=== PATIENT | female | born 1990 | race Caucasian/White ===

== ENCOUNTER → 2018-05-30 13:13 | Outpatient (CLI) | payer MEDICAID, SELFPAY ==
[2018-05-30 14:26] LABS: Alanine Aminotransferase 23 U/L (12-78); Albumin Level 4.5 gm/dL (3.4-5.0); Albumin/Globulin Ratio 1.3 (1.1-1.8); Alkaline Phosphatase 86 U/L (46-116); Anion Gap 15.2 mEq/L (5-15); Aspartate Amino Transferase 21 U/L (15-37); Basophils % 0.5 % (0.1-2.0); Bilirubin,Total 0.8 mg/dL (0.2-1.0); Blood Urea Nitrogen 11 mg/dL (7-18); Calcium 9.6 mg/dL (8.5-10.1); Carbon Dioxide 28 mmol/L (21.0-32.0); Chloride 102 mmol/L (98-107); Chol/HDL Ratio 1.9 (1-3.5); Cholesterol 160 mg/dL (140-200); Creatinine,Serum 0.49 mg/dL (0.55-1.02); Eosinophils # 0.1 K/mm3 (0.0-0.4); Eosinophils % 0.9 % (0.1-12.0); Estimated Glomerular Filt Rate 149 ml/min (>60); GFR (African American) 181 ML/MIN (>60); Globulin 3.6 gm/dl (1.3-3.2); Glucose 79 mg/dL (74-106); HDL Cholesterol 86 mg/dL (29-89); Hematocrit 46.5 % (37.0-47.0); Hemoglobin 15.1 g/dL (12.2-16.2); LDL Cholesterol 68 mg/dL (0-130); Lymphocytes # 0.9 K/mm3 (0.7-4.5); Lymphocytes % 14.5 % (10-50); Mean Corpuscular HGB Conc 32.4 g/dL (31.8-35.4); Mean Corpuscular Hemoglobin 29.2 pg (27.0-31.2); Mean Corpuscular Volume 90.1 fl (81-99); Mean Platelet Volume 8.5 fl (7.4-10.4); Monocytes # 0.4 K/mm3 (0.1-1.0); Monocytes % 5.5 % (1.7-9.3); Neutrophils # 5.1 K/mm3 (1.8-7.8); Neutrophils % 78.6 % (37.0-80.0); Platelet Count 257 K/mm3 (142-424); Potassium 4.2 mmoL/L (3.5-5.1); Red Blood Count 5.16 M/mm3 (4.20-5.40); Red Cell Distribution Width 12.9 % (11.5-17.5); Sodium 141 mmol/L (136-145); T4 (Thyroxine) 8.6 ug/dl (4.7-13.3); Thyroid Stimulating Hormone 1.11 uIU/ml (0.358-3.740); Total Protein,Serum 8.1 gm/dL (6.4-8.2); Triglycerides 32 mg/dL (30-200); VLDL Cholesterol 6 mg/dL (0-40); White Blood Count 6.5 K/mm3 (4.8-10.8)
[2018-05-31 15:53] LABS: Vitamin D 25 Hydroxy 50.7 ng/mL (30.0-100.0)
== END ==
PROVIDERS: PCP Nurse Practitioner Family; Visit Provider Nurse Practitioner Family
DX: M79.89 Other specified soft tissue disorders (principal)
CPT/HCPCS: 80053; 80061; 82652; 84436; 84443; 85025

== ENCOUNTER 2021-03-20 10:11 | Emergency (ER) | payer OTHER, SELFPAY ==
[2021-03-20 11:21] VITALS: BP 136/90; PULSE 70; RESP 18; TEMP 36.6; O2SAT 99; BMI 17.1
[2021-03-20 11:26] VITALS: BP 136/90; PULSE 70; RESP 18; TEMP 36.8
--- NOTE | 2021-03-20 11:40 | HMH.EDUTC ---
[facility] Disposition Clinical Impression: Sinusitis Qualifiers: Sinusitis location: maxillary Chronicity: acute Recurrence: non-recurrent Qualified Code(s): J01.00 - Acute maxillary sinusitis, unspecified Disposition: Home, Self-Care Condition on Discharge: Good Instructions: DI for Sinusitis Additional Instructions: You have been tested for COVID19. Please isolate as if you are positive until test results received. Prescriptions: Amoxicillin [Amoxicillin 875MG Tab] 875 mg PO Q12H #20 tab Transmission Status: Pending to [facility] predniSONE [Prednisone 20mg Tab] 20 mg PO BID 5 Days #10 tab Transmission Status: Pending to [facility] Pseudoephedrine HCl [Sudafed 12 Hour 120mg Tab] 1 tab PO BID PRN 10 Days #20 tab PRN Reason: Congestion Transmission Status: Pending to [facility] Referrals: Mamie Faustin PA [Primary Care Provider] - Time of Disposition: 11:53 Medical Decision Making - Geovanny Inquiry Pt receiving controlled substance: No Vital Signs: 03/20/21 11:21 03/20/21 11:26 Temperature 97.9 F 98.2 F Temperature Source Oral Pulse Rate 70 Pulse Rate [Left] 70 Respiratory Rate 18 18 Blood Pressure 136/90 Blood Pressure [Right Arm] 136/90 Blood Pressure Mean [Right Arm] 105 02 Sat by Pulse Oximetry 99 Orders (Tests/Meds): ORDERS Category Date Time Status Covid-19 Nasal PCR ([facility]) Routine Lab 03/20/21 11:25 Received [facility] HPI - General Stated complaint: congestion, sinus Time Seen by Provider: 03/20/21 11:42 Mode of Arrival: Ambulatory Source of Information: Patient Limitations: No Limitations Description of Symptoms (Recalled from Triage Doc. by RN): pt c/o congestion, sinus pressure and SHAVER HEENT Symptoms (Recalled from RN notes): Yes (sinus pressure/congestion and SHAVER) Resp Symptoms (Recalled from RN notes): No Skin Symptoms (Recalled from RN notes): No MS Symptoms (Recalled from RN notes): No Functional Status (Recalled from RN notes): na - History of Present Illness Provider Complaint: Patient complains of headache, ears popping, sinus pain and pressure, pain behind eyes and sore throat X 3-4 days. No fever. Can't breathe thru nose because it is so congestion. Smell and taste come and go. No known exposure to COVID19 but kids are in school. No cough. No vomiting or diarrhea. Onset (ago): day(s) (4) Location: head, eyes Relieving factors: none Exacerbating factors: none Associated symptoms: denies other symptoms Treatments prior to arrival: none - Related Data Home Medications Medication Instructions Recorded Confirmed levonorgestrel 20 mcg/24 hours (6 1 insert INTRAUTERI ONCE 11/28/17 01/21/20 yrs) 52 mg intrauterine device Previous Rx's Medication Instructions Recorded Amoxicillin [Amoxicillin 875MG 875 mg PO Q12H #20 tab 03/20/21 Tab] Pseudoephedrine HCl [Sudafed 12 1 tab PO BID PRN 10 Days #20 tab 03/20/21 Hour 120mg Tab] predniSONE [Prednisone 20mg 20 mg PO BID 5 Days #10 tab 03/20/21 Tab] Allergies Allergy/AdvReac Type Severity Reaction Status Date / Time No Known Allergies Allergy Verified 01/21/20 14:01 - Worker's Comp Is this a Worker's Comp case?: No [facility] History - Hepatitis A Screen Drug use history?: No High risk sexual behaviors?: No History of sexually transmitted infection?: No Currently employed?: No Childcare worker?: No Do you have indoor plumbing?: Yes Do you have electricity?: Yes Attestation statement:: This patient has been screened for Hepatitis A risk factors. I have reviewed the patient's past medical history: Yes Medical History: Reports:: Anxiety, Depression Other Surgeries: Yes: No Previous Surgery, Other Amputation: No Fractures: Yes Comment: wisdom teeth - Social History Smoking Status: Never smoker Alcohol Intake: never Substance Use Type: denies use Occupational Status: employed Housing: house - Psychiatric History Pschychiatric History
== END 2021-03-20 12:13 | disposition home or self-care (01) ==
PROVIDERS: Emergency Provider Physician Assistant; PCP Physician Assistant
DX: J01.00 Acute maxillary sinusitis, unspecified (principal); F41.8 Other specified anxiety disorders; Z20.822 Contact with and (suspected) exposure to COVID-19
CPT/HCPCS: 99202; G0463; U0003

== ENCOUNTER → 2021-06-23 08:54 | Outpatient (CLI) | payer OTHER, SELFPAY | PROVIDERS: PCP Physician Assistant; Visit Provider Nurse Practitioner | DX: Z20.822 Contact with and (suspected) exposure to COVID-19 (principal) | CPT/HCPCS: C9803; U0003; U0005 ==

== ENCOUNTER → 2021-08-21 12:30 | Outpatient (CLI) | payer OTHER, SELFPAY | PROVIDERS: Visit Provider Nurse Practitioner | DX: U07.1 COVID-19 (principal) | CPT/HCPCS: C9803; U0003; U0005 ==

== ENCOUNTER → 2022-02-23 06:10 | Outpatient (CLI) | payer OTHER, SELFPAY ==
[2022-02-22 17:59] LABS: Basophils # 0.1 K/mm3 (0-0.2); Basophils % 1.2 % (0.1-2.0); Eosinophils % 0.5 % (0.1-12.0); Hematocrit 46.4 % (37.0-47.0); Hemoglobin 15.3 g/dL (12.2-16.2); Lymphocytes # 1.4 K/mm3 (0.7-4.5); Lymphocytes % 19.1 % (10-50); Mean Corpuscular Volume 90.9 fl (81-99); Mean Platelet Volume 9.5 fl (7.4-10.4); Monocytes # 0.4 K/mm3 (0.1-1.0); Monocytes % 5.1 % (1.7-9.3); Neutrophils # 5.4 K/mm3 (1.8-7.8); Platelet Count 296 K/mm3 (142-424); Red Blood Count 5.11 M/mm3 (4.20-5.40); Red Cell Distribution Width 13.1 % (11.5-17.5); White Blood Count 7.2 K/mm3 (4.8-10.8)
[2022-02-22 18:27] LABS: Alanine Aminotransferase 17 U/L (12-78); Albumin Level 4.8 g/dl (3.5-5.0); Albumin/Globulin Ratio 1.7 (1.1-1.8); Alkaline Phosphatase 88 U/L (38-126); Anion Gap 14.2 mEq/L (5-15); Aspartate Amino Transferase 30 U/L (14-36); Bilirubin,Total 1.1 mg/dl (0.2-1.3); Blood Urea Nitrogen 9 mg/dl (7-17); Calcium 10.3 mg/dl (8.4-10.2); Carbon Dioxide 26 mmol/L (22.0-30.0); Chloride 103 mmol/L (98-107); Chol/HDL Ratio 2.2 (1-3.5); Cholesterol 179 mg/dl (140-200); Estimated Glomerular Filt Rate 115 ml/min (>60); GFR (African American) 139 ML/MIN (>60); Globulin 2.9 g/dL (1.3-3.2); Glucose 112 mg/dl (74-100); HDL Cholesterol 81 mg/dl (40-60); Potassium 4.2 mmoL/L (3.5-5.1); Sodium 139 mmol/L (136-145); Total Protein,Serum 7.7 g/dl (6.3-8.2); Triglycerides 57 mg/dl (30-150); VLDL Cholesterol 11 mg/dL (0-40)
[2022-02-22 18:44] LABS: 25-OH Vitamin D, Total 49.5 ng/mL (30-100)
[2022-02-22 19:37] LABS: Direct LDL Cholesterol 72.33 mg/dL (100-129)
[2022-02-22 20:09] LABS: Iron 124 ug/dL (37-170)
[2022-02-22 20:16] LABS: Vitamin B12 444 pg/mL (239-931)
[2022-02-22 20:18] LABS: Total Iron Binding Capacity 264 ug/dL (265-497)
[2022-02-23 08:29] LABS: Hemoglobin A1C 4.9 % (4.0-6.0)
[2022-02-23 08:32] LABS: Intact Parathyroid Hormone 34.8 pg/mL (7.5-53.5)
== END ==
PROVIDERS: PCP Physician Assistant; Visit Provider Physician Assistant
DX: R63.4 Abnormal weight loss (principal); R73.09 Other abnormal glucose; E83.52 Hypercalcemia; Z68.1 Body mass index [BMI] 19.9 or less, adult
CPT/HCPCS: 80053; 80061; 82306; 82607; 83036; 83540; 83550; 83970; 84443; 85025

== ENCOUNTER → 2022-02-23 14:52 | Outpatient (CLI) | payer OTHER, SELFPAY ==
[2022-02-23 16:35] LABS: Triiodothryronine (T3) Uptake 33 % (23.5-40.5)
[2022-02-23 16:36] LABS: Free Thyroxine Index 3.1 ug/dL (5.93-13.13); T4 (Thyroxine) 9.4 ug/dl (5.53-11.0)
[2022-02-23 16:50] LABS: Thyroid Stimulating Hormone 0.49 uIU/mL (0.465-4.68)
[2022-02-25 08:14] LABS: Thyroid Peroxidase Antibodies 10 IU/mL (0-34)
[2022-02-27 15:09] LABS: Thyroid Stimulating Immunoglob <0.10 IU/L (0.00-0.55)
== END ==
PROVIDERS: PCP Physician Assistant; Visit Provider Physician Assistant
DX: R79.89 Other specified abnormal findings of blood chemistry (principal)
CPT/HCPCS: 36415; 84436; 84443; 84445; 84479; 86376

== ENCOUNTER → 2022-03-14 12:53 | Outpatient (CLI) | payer OTHER, SELFPAY ==
--- NOTE | 2022-03-14 12:58 | US_ITS ---
FINAL REPORT CLINICAL HISTORY: Decreased TSH FINDINGS: THYROID ULTRASOUND Sonographic images of the thyroid was obtained. The right lobe of the thyroid measures 4.4 x 2.0 x 1.5 cm. The left lobe of the thyroid measures 4.2 x 1.4 x 0.8 cm. The isthmus measures 3 mm. There are multiple tiny anechoic, hypoechoic foci in the bilateral lobes of the thyroid consistent with TI-RADS category 3. All of the lesions are less than 5 mm. IMPRESSION: Bilateral lesions, less than 5 mm, TI-RADS category 3. No follow-up is required. Reviewed, Interpreted and Dictated by Vasile Tanner MD Transcribed by Yashira Burns Authenticated and [facility]
[2022-03-14 16:39] LABS: Thyroid Stimulating Hormone 0.62 uIU/mL (0.465-4.68)
== END ==
PROVIDERS: PCP Physician Assistant; Visit Provider Physician Assistant
DX: R79.89 Other specified abnormal findings of blood chemistry (principal)
CPT/HCPCS: 36415; 76536; 84443

== ENCOUNTER 2022-05-05 04:56 | Emergency (ER) | payer OTHER, SELFPAY ==
[2022-05-05 04:56] VITALS: BP 124/81; PULSE 84; RESP 16; TEMP 36.6; O2SAT 99; BMI 16.6
--- NOTE | 2022-05-05 05:23 | HMH.EDURI ---
Discharge Plan Disposition Patient Disposition: Home, Self-Care Prescriptions Prescriptions: New azithromycin [azithromycin] 250 mg tablet 250 mg PO DIRECTED Qty: 6 0RF Rx Instructions: Take two (2) tablets on day #1, then one (1) tablet day #2 thru #5 No Action levonorgestrel [Mirena] 20 mcg/24 hr (5 years) intrauterine device 1 insert INTRAUTERI ONCE cyproheptadine 4 mg tablet 4 mg PO HS Qty: 90 0RF buspirone 7.5 mg tablet See Rx Instructions .ROUTE .COMPLEX Qty: 90 0RF Dose Instruction: TAKE 1 TABLET BY MOUTH THREE TIMES DAILY Rx Instructions: TAKE 1 TABLET BY MOUTH THREE TIMES DAILY Referrals Follow up/Referrals: Mamie Faustin PA [Primary Care Provider] - See instructions Clinical Impressions Clinical Impression: Bronchitis Instructions Patient Instructions: DI for Acute Bronchitis Discharge ED Provider: Perry Sears URI/Sore Throat HPI General Chief Complaint: Upper Respiratory Infection Stated Complaint: cough, sore throat, congestion Time Seen by Provider: 05/05/22 05:23 Mode of Arrival: Ambulatory Source of Information: Patient and Medical Record Limitations: No Limitations Description of Symptoms (Recalled from ER Triage Doc. by RN): pt c/o sore throat, cough, congestion that started yesterday History of Present Illness HPI Narrative: uri sx and cough with sore throat which started yesterday MD Complaint: sore throat and nasal congestion Onset (ago): day(s) Duration: intermittent Severity: moderate Able to tolerate fluids by mouth: Yes Associated symptoms: denies other symptoms Treatments prior to arrival: none Related Data Home Medications Medication Instructions Recorded Confirmed levonorgestrel 20 mcg/24 hours (8 1 insert intrauterine ONCE 11/28/17 02/22/22 yrs) 52 mg intrauterine device (Mirena) Previous Rx's Medication Instructions Recorded cyproheptadine 4 mg tablet 4 mg PO HS #90 tabs 04/11/22 buspirone 7.5 mg tablet See Rx Instructions .Route 04/17/22 .COMPLEX #90 tabs azithromycin 250 mg tablet 250 mg PO DIRECTED #6 tabs 05/05/22 Allergies Allergy/AdvReac Type Severity Reaction Status Date / Time No Known Allergies Allergy Verified 02/22/22 13:06 [facility] Medical History (Updated 10/14/22 @ 06:27 by Perry Sears MD) Anxiety Social History Smoking Status: Never smoker alcohol intake: never substance use type: denies use current occupational status: employed Travel in the last 8 weeks: None housing: house ROS Obtained: Yes All systems reviewed & no additional complaints except as documented Physical Exam General General appearance: alert Head Head exam: normocephalic Eye Eye exam: Present PERRL and EOMI; Absent scleral icterus ENT ENT exam: Present mucous membranes moist Neck Neck exam: Present trachea midline Respiratory Respiratory exam: Present normal lung sounds bilaterally Cardiovascular Cardiovascular exam: Present regular rate Abdominal Exam Abdominal exam: Present soft Extremities Exam Extremities exam: Present full ROM Neurological Exam Neurological exam: Present alert and CN II-XII intact Psychiatric Psychiatric exam: Present normal affect Skin Skin exam: Absent rash Medical Decision Making Medical Records Medical records reviewed: Yes I reviewed the patient's medical records. Geovanny Inquiry Pt receiving controlled substance: No Vital Signs: 05/05/22 04:56 Temperature 97.8 F Temperature Source Oral Pulse Rate [Right] 84 Respiratory Rate 16 Blood Pressure [Right Arm] 124/81 Blood Pressure Mean [Right Arm] 95 02 Sat by Pulse Oximetry 99 Lab Data Lab results reviewed: Yes I reviewed the patient's lab results. Lab Results 05/05/22 05:03: SARS-CoV-2 (PCR) Not detected, Influenza A Untype (PCR) Not detected, Influenza Type B (PCR) Not detected Orders (Tests/Meds): ORDERS Category Date Time Status Rapid PCR Cov
[2022-05-05 05:35] LABS: Coronavirus 19, PCR Not Detected (NotDetected); Influenza A, PCR Not Detected (NotDetected); Influenza B, PCR Not Detected (NotDetected)
[2022-05-05 06:29] VITALS: BP 119/74; PULSE 80; RESP 16; TEMP 36.6; O2SAT 99
== END 2022-05-05 06:36 | disposition home or self-care (01) ==
PROVIDERS: Emergency Provider Emergency Medicine; PCP Physician Assistant
DX: J40 Bronchitis, not specified as acute or chronic (principal)
CPT/HCPCS: 99283; C9803; U0003; U0005

== ENCOUNTER → 2022-06-09 14:01 | Outpatient (CLI) | payer OTHER, SELFPAY ==
[2022-06-09 20:43] LABS: Thyroid Stimulating Hormone 0.62 uIU/mL (0.465-4.68)
== END ==
PROVIDERS: PCP Physician Assistant; Visit Provider Physician Assistant
DX: R79.89 Other specified abnormal findings of blood chemistry (principal)
CPT/HCPCS: 84436; 84443

== ENCOUNTER → 2022-09-27 09:21 | Outpatient (CLI) | payer OTHER, SELFPAY | PROVIDERS: PCP Physician Assistant; Visit Provider Physician Assistant | DX: N89.8 Other specified noninflammatory disorders of vagina (principal) | CPT/HCPCS: 87210 ==

== ENCOUNTER → 2022-10-05 14:08 | Outpatient (CLI) | payer OTHER, SELFPAY ==
[2022-10-05 14:52] LABS: Basophils % 0.8 % (0.1-2.0); Eosinophils # 0.1 K/mm3 (0.0-0.4); Eosinophils % 1.3 % (0.1-12.0); Hematocrit 44.6 % (37.0-47.0); Hemoglobin 14.4 g/dL (12.2-16.2); Lymphocytes # 1.1 K/mm3 (0.7-4.5); Mean Corpuscular HGB Conc 32.4 g/dL (31.8-35.4); Mean Corpuscular Hemoglobin 29.1 pg (27.0-31.2); Mean Corpuscular Volume 89.8 fl (81-99); Mean Platelet Volume 9.4 fl (7.4-10.4); Monocytes # 0.3 K/mm3 (0.1-1.0); Monocytes % 6.8 % (1.7-9.3); Neutrophils # 3.2 K/mm3 (1.8-7.8); Neutrophils % 67.1 % (37.0-80.0); Platelet Count 288 K/mm3 (142-424); Red Blood Count 4.97 M/mm3 (4.20-5.40); Red Cell Distribution Width 13.2 % (11.5-17.5); White Blood Count 4.8 K/mm3 (4.8-10.8)
[2022-10-05 15:01] LABS: Alanine Aminotransferase 103 U/L (12-78); Albumin Level 4.8 g/dl (3.5-5.0); Alkaline Phosphatase 72 U/L (38-126); Anion Gap 10.3 mEq/L (5-15); Aspartate Amino Transferase 88 U/L (14-36); Bilirubin,Total 0.9 mg/dl (0.2-1.3); Blood Urea Nitrogen 12 mg/dl (7-17); Calcium 9.4 mg/dl (8.4-10.2); Carbon Dioxide 25 mmol/L (22.0-30.0); Chloride 104 mmol/L (98-107); Estimated Glomerular Filt Rate 115 ml/min (>60); GFR (African American) 139 ML/MIN (>60); Globulin 2.4 g/dL (1.3-3.2); Glucose 84 mg/dl (74-100); Potassium 4.3 mmoL/L (3.5-5.1); Sodium 135 mmol/L (136-145); Total Protein,Serum 7.2 g/dl (6.3-8.2)
[2022-10-05 15:15] LABS: 25-OH Vitamin D, Total 36.5 ng/mL (30-100)
[2022-10-05 15:20] LABS: Free Thyroxine Index 3.6 ug/dL (5.93-13.13); T4 (Thyroxine) 10.7 ug/dl (5.53-11.0); Triiodothryronine (T3) Uptake 34 % (23.5-40.5)
[2022-10-05 15:33] LABS: Thyroid Stimulating Hormone 0.44 uIU/mL (0.465-4.68)
[2022-10-05 15:48] LABS: Vitamin B12 672 pg/mL (239-931)
[2022-10-05 18:04] LABS: Ferritin 146 ng/ml (6.24-137)
[2022-10-06 14:46] LABS: Monoscreen (Rapid) Negative (Negative)
[2022-10-07 11:00] LABS: Thyroid Peroxidase Antibodies <9 IU/mL (0-34)
[2022-10-07 15:02] LABS: EBV Ab VCA, IgM <36.0 U/mL (0.0-35.9)
[2022-10-08 13:45] LABS: Thyroid Stimulating Immunoglob <0.10 IU/L (0.00-0.55)
== END ==
PROVIDERS: PCP Physician Assistant; Visit Provider Physician Assistant
DX: F41.9 Anxiety disorder, unspecified (principal); R63.4 Abnormal weight loss; Z68.1 Body mass index [BMI] 19.9 or less, adult
CPT/HCPCS: 80053; 82306; 82607; 82728; 84436; 84443; 84445; 84479; 85025; 86318; 86376; 86664; 86665

== ENCOUNTER → 2022-10-06 07:30 | Outpatient (CLI) | payer OTHER, SELFPAY | PROVIDERS: PCP Physician Assistant; Visit Provider Physician Assistant | DX: F41.9 Anxiety disorder, unspecified (principal); R63.4 Abnormal weight loss; Z68.1 Body mass index [BMI] 19.9 or less, adult | CPT/HCPCS: 86318; 86664; 86665 ==

== ENCOUNTER → 2022-11-07 13:00 | Outpatient (CLI) | payer OTHER, SELFPAY | PROVIDERS: PCP Physician Assistant; Visit Provider Physician Assistant | DX: R41.3 Other amnesia (principal); G47.30 Sleep apnea, unspecified; R06.83 Snoring | CPT/HCPCS: G0399 ==

== ENCOUNTER → 2022-11-07 13:39 | Outpatient (CLI) | payer OTHER, SELFPAY | PROVIDERS: PCP Physician Assistant; Visit Provider Physician Assistant | DX: Z20.2 Contact with and (suspected) exposure to infections with a predominantly sexual mode of transmission (principal) | CPT/HCPCS: 87210 ==

== ENCOUNTER → 2022-11-21 12:15 | Outpatient (CLI) | payer OTHER, SELFPAY | PROVIDERS: PCP Physician Assistant; Visit Provider Physician Assistant | DX: R00.0 Tachycardia, unspecified (principal); I10 Essential (primary) hypertension | CPT/HCPCS: 93225; 93226 ==

== ENCOUNTER 2023-02-06 06:24 | Day surgery (SDC) | payer OTHER, SELFPAY ==
[2023-02-06] VITALS (10 sets, daily range): BP systolic 95–138; BP diastolic 46–73; PULSE 60–73; RESP 6–18; TEMP 36.4–36.7; O2SAT 91–99; BMI 13.9
[2023-02-06 06:50] LABS: Urine Pregnancy, HCG Qual. Negative (Negative)
--- NOTE | 2023-02-06 07:24 | P.PNANES_ITS ---
[facility] Disclaimer: The information contained in this section may have been updated after the patient was seen, as this information can be updated by other users. Medical History Amenorrhea secondary to mirena IUD Anxiety Attention Deficit Hyperactivity Disorder (ADHD) IUD (intrauterine device) in place Insertion 12/14/15 Surgical History History of wisdom tooth extraction Family History Other Cancer Diabetes Social History (Updated 02/06/23 @ 06:50 by Celia Juarez RN) Smoking Status: Former smoker alcohol intake: never substance use type: denies use current occupational status: unemployed Travel in the last 8 weeks: None housing: house caffeine: No [facility] Anesthesia Checklist Patient Identification Patient Identification: Arm Band and Family Structural Data Admitted From: Home Planned Operative Procedure/s: Peg tube placement Consent for Planned Operative Procedure(s) Verified: Yes Verified Documents: Surgical Consent and History and Physical NPO Status Verified Time NPO: 00:00 Additional verifications Patient : No Anesthesia Reactions: No Hx Blood Transfusions: No Blood Transfusion Reaction: No Cephalosporin Allergy: No Airway Assessment C-Spine Mobility Assessed: Yes TMJ Mobility Assessed: Yes Dentition: Good Dentition Neurological Assessment Level of Consciousness: Awake, Alert, Appropriate and Follows Commands Hx Seizures: No Numbness or tingling in extremities: No Anesthesia Plan Anesthesia Risk discussed: Yes ASA Class: II Anesthesia Type: MAC Preoperative Comments Pre-Operative Comments: Loss of weight. Loss of appetite. Weight 86 pounds.
--- NOTE | 2023-02-06 08:04 | P.PCN_ITS ---
Procedure: Date: 02/06/23 Patient Date of :: 1990 Procedure Performed:: Percutaneous endoscopic gastrostomy tube placement Indications:: Malnutrition Performing Provider:: Mohan Rudd MD Referring Provider:: . Sedation:: Monitored anesthesia care Procedure:: After informed consent was obtained the patient was taken to the endoscopy suite. Sedation ensued after the patient was maintained in the supine position. Pulse, blood pressure, and oxygen saturation were monitored throughout the procedure. The endoscope was advanced into the gastric lumen. The stomach was insufflated. Transillumination and impulse both confirmed. At the point of maximal impulse/transillumination a small transverse incision was made after infiltration with local anesthetic. A large bore Angiocath was then placed u nder direct visualization into the gastric lumen. The guidewire was then placed through the Angiocath and retrieved via snare. The gastrostomy tube was secured to the wire and then pulled into appropriate position. The tube was anchored at 2 cm. The gastroscope was readvanced. No bleeding noted. The bumper/tube rotated without difficulty. The gastroscope was carefully removed and the patient was transferred to recovery in stable condition. Please see findings and specimens below for detail. Findings:: PEG anchored at 2 cm Specimens:: None Recommendations:: Abdominal binder on at all times PEG utilization as needed Complications:: No immediate Estimated blood obtained (mL): 5 Colonoscopy Component Colonoscopy Component Was a colonoscopy performed during today's procedure?: No
--- NOTE | 2023-02-06 08:40 | SUR.PREOP ---
Spoke with nurse at Dr. Sears/Mamie Faustin's office. She states that [facility] has been contacted and will be delivering Boost to patient's house and instructing on administration. Pt and family notified. Obtained [facility] contact name and number and will provide this information to patient.
--- NOTE | 2023-02-06 10:50 | SUR.PHASEII ---
1000- PEG tube flushed w/ sterile water with clear fluid returned upon aspiration. Patient tolerated well.
== END 2023-02-06 10:14 | disposition home or self-care (01) ==
PROVIDERS: PCP Physician Assistant; Visit Provider Surgery
PROC: 0DH63UZ Insertion of Feeding Device into Stomach, Percutaneous Approach (ICD-10-PCS; CPT 43246; principal; 2023-02-06 07:30)
DX: E46 Unspecified protein-calorie malnutrition (principal); Z93.1 Gastrostomy status
CPT/HCPCS: 43246; 81025; J2704

== ENCOUNTER → 2023-02-13 13:03 | Outpatient (CLI) | payer OTHER, SELFPAY | PROVIDERS: PCP Physician Assistant; Visit Provider Physician Assistant | DX: N39.0 Urinary tract infection, site not specified (principal) | CPT/HCPCS: 87086 ==

== ENCOUNTER → 2023-05-18 23:30 | Outpatient (CLI) | payer OTHER, SELFPAY ==
[2023-05-18 18:21] LABS: Adenovirus,PCR Not Detected (NotDetected); Coronavirus 19, PCR Not Detected (NotDetected); Coronavirus 229E Not Detected (NotDetected); Coronavirus NL63 Not Detected (NotDetected); Coronavirus OC43 Not Detected (NotDetected); Coronovirus HKU1,PCR Not Detected (NotDetected); Human Metapneumovirus Not Detected (NotDetected); Influenza A, PCR Not Detected (NotDetected); Influenza AH1, 2009 Not Detected (NotDetected); Influenza AH1, PCR Not Detected (NotDetected); Influenza AH3,PCR Not Detected (NotDetected); Influenza B, PCR Not Detected (NotDetected); Parainfluenza 1, PCR Not Detected (NotDetected); Parainfluenza 2, PCR Not Detected (NotDetected); Parainfluenza 3, PCR Not Detected (NotDetected); Parainfluenza 4, PCR Not Detected (NotDetected); Respiratory Syncytial Virus Not Detected (NotDetected)
[2023-05-18 21:03] LABS: Rhinovirus/Enterovirus Detected (NotDetected)
== END ==
PROVIDERS: PCP Physician Assistant; Visit Provider Student in an Organized Health Care Education/Training Program
DX: B34.1 Enterovirus infection, unspecified; R05.8 Other specified cough; R50.9 Fever, unspecified; R09.89 Other specified symptoms and signs involving the circulatory and respiratory systems; J02.9 Acute pharyngitis, unspecified
CPT/HCPCS: 87632; 87635

== ENCOUNTER 2023-08-27 11:42 | Outpatient (CLI) | payer BC, SELFPAY ==
[2023-08-27 11:51] LABS: Basophils % 0.4 % (0.1-2.0); Eosinophils % 0.3 % (0.1-12.0); Hematocrit 44.6 % (37.0-47.0); Lymphocytes # 0.9 K/mm3 (0.7-4.5); Lymphocytes % 9.8 % (10-50); Mean Corpuscular HGB Conc 33.5 g/dL (31.8-35.4); Mean Corpuscular Hemoglobin 31.2 pg (27.0-31.2); Mean Platelet Volume 9.6 fl (7.4-10.4); Monocytes # 0.4 K/mm3 (0.1-1.0); Monocytes % 4.7 % (1.7-9.3); Neutrophils # 7.6 K/mm3 (1.8-7.8); Neutrophils % 84.7 % (37.0-80.0); Platelet Count 227 K/mm3 (142-424); Red Cell Distribution Width 12.9 % (11.5-17.5)
[2023-08-27 12:40] LABS: Alanine Aminotransferase 28 U/L (12-78); Albumin Level 4.8 g/dl (3.5-5.0); Albumin/Globulin Ratio 1.7 (1.1-1.8); Alkaline Phosphatase 76 U/L (38-126); Anion Gap 10.1 mEq/L (5-15); Aspartate Amino Transferase 31 U/L (14-36); Bilirubin,Total 0.6 mg/dl (0.2-1.3); Blood Urea Nitrogen 13 mg/dl (7-17); Calcium 10.2 mg/dl (8.4-10.2); Carbon Dioxide 30 mmol/L (22.0-30.0); Chloride 104 mmol/L (98-107); Chol/HDL Ratio 2.3 (1-3.5); Cholesterol 191 mg/dl (140-200); Estimated Glomerular Filt Rate 114 ml/min (>60); GFR (African American) 138 ML/MIN (>60); Globulin 2.8 g/dL (1.3-3.2); Glucose 111 mg/dl (74-100); HDL Cholesterol 84 mg/dl (40-60); Potassium 4.1 mmoL/L (3.5-5.1); Sodium 140 mmol/L (136-145); Total Protein,Serum 7.6 g/dl (6.3-8.2); Triglycerides 88 mg/dl (30-150); VLDL Cholesterol 18 mg/dL (0-40)
[2023-08-27 12:57] LABS: 25-OH Vitamin D, Total 25.4 ng/mL (30-100)
[2023-08-27 13:11] LABS: Thyroid Stimulating Hormone 0.28 uIU/mL (0.465-4.68)
== END 2023-08-27 23:59 ==
LOC: LAB.DROPOF 11:42
PROVIDERS: PCP Physician Assistant; Visit Provider Physician Assistant
DX: E05.90 Thyrotoxicosis, unspecified without thyrotoxic crisis or storm (principal); E55.9 Vitamin D deficiency, unspecified; Z79.899 Other long term (current) drug therapy
CPT/HCPCS: 80053; 80061; 82306; 84443; 85025